=== PATIENT | male | born 1965 | race Caucasian/White ===

== ENCOUNTER 2016-05-17 07:58 | Emergency (ER) | payer SELFPAY ==
[~2016-05-17] VITALS: Ht 170.2 cm; Wt 98.0 kg
[~2016-05-17 07:58] MED LIST: ALBU.5I NEB; PRED20 PO; VENTAER INH
[2016-05-17 07:59] VITALS: BP 158/89; PULSE 77; RESP 16; TEMP 97.9; O2SAT 96
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
[2016-05-17] MEDS ORDERED: methylPREDNISolone SOD SUCC 125 MG/2 ML VIAL IM ONE (08:15)
[2016-05-17 08:20] VITALS: RESP 20; O2SAT 97; O2SAT 98
[2016-05-17] MEDS: RESP: ALBUTEROL 2.5 MG/IPRATROPIUM 0.5 MG NEB (SCH) INH ×2 (08:20→08:22)
[2016-05-17] MEDS ORDERED: ALBUAER3 INH (08:23)
[2016-05-17] MEDS ORDERED: PRED50 PO (08:23)
[2016-05-17] MEDS ORDERED: ALBU0.08 NEB (08:23)
[2016-05-17] MEDS ORDERED: BENZ100 PO (08:23)
[2016-05-17] MEDS ORDERED: IBUP800T23 PO (08:26)
--- NOTE | 2016-05-17 08:28 | PD ---
Data Data Last Documented VS Vital Signs Date Time Temp Pulse Resp B/P Pulse Ox O2 Delivery O2 Flow Rate FiO2 05/17/16 08:20 20 97 Room Air 05/17/16 07:59 97.9 77 158/89 Orders Electrocardiogram (05/17/16 08:08) Ecg Monitoring (05/17/16 08:08) Oximetry (05/17/16 08:08) Oxygen Administration (05/17/16 08:08) Chest, Single Ap (05/17/16 08:08) Albuterol-Ipratropium Neb (Duoneb Neb) (05/17/16 08:15) Methylprednisolone So Succ Inj (Solumedr (05/17/16 08:15) MDM Supervised Visit with MERLYN: Yes Narrative Course The history, exam, and medical decision-making in the associated mid-level provider note were completed with my assistance. I reviewed and agree with the findings presented. I attest that I had a [id number] encounter with the patient on the same day, and personally performed and documented my assessment and findings in the medical record. *My assessment and Findings: 51-year-old man with COPD presents emergent from shortness of breath and chest tightness. Symptoms started yesterday after he ran out of his medications. He states he always gets this tightness in his chest when he gets his COPD exacerbations. Recent negative stress test. Symptoms are nonexertional, worse with coughing. No recent URI or fevers chills. Symptoms are consistent with his previous exacerbations. EKG is unremarkable. We'll check x-ray, treatment for COPD exacerbation proper dilators steroids antibiotics. Diagnosis Primary Impression: COPD exacerbation Additional Impressions: Atypical chest pain Costochondritis Tobacco dependency Patient Instructions: General Instructions, COPD (Chronic Obstructive Pulmonary Disease) (ED) Additional Instruction: Please return to emergency department if your symptoms return or worsen. Follow up with your primary care provider. Try to obtain information about the [facility]. Take medications as prescribed. Scripts Ibuprofen 800 Mg Dyt169 Mg PO TID #30 TAB Prov:Moreno Yip MD 05/17/16 Albuterol Neb 2.5 Mg/3 Ml Neb2.5 Mg NEB TID NEB PRN (SHORTNESS OF BREATH) #60 NEBULE Ref 3 Prov:Moreno Yip MD 05/17/16 Albuterol 8.5 GM Inh (Proair Hfa 8.5 GM Inh)90 Mcg/Act Aer2 Puff INH Q6H PRN ( SHORTNESS OF BREATH) #1 INHALER Ref 2 108 mcg/actuation Prov:Moreno Yip MD 05/17/16 Benzonatate (Tessalon Perles)100 Mg [id number] Mg PO TID PRN (COUGH) #30 CAP Ref 0 Prov:Moreno Yip MD 05/17/16 Prednisone 50 Mg Tab50 Mg PO DAILY #5 TAB Prov:Moreno Yip MD 05/17/16 Disposition: 01 DISCHARGE HOME Condition: Stable Moreno Yip MD May 17, 2016 08:28
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
[2016-05-17 09:20] VITALS: BP 130/77; TEMP 97.8
--- NOTE | 2016-05-18 11:42 | EKG ---
Date Performed: 05/17/2016 Time Performed: 08:19:21 PTAGE: 51 years EKG: Sinus rhythm BORDERLINE RIGHT AXIS DEVIATION BORDERLINE ECG PREVIOUS TRACING : 02/12/2016 08.19 DOCTOR: Moreno Moreland Interpretating Date/Time 05/18/2016 11:40:29
== END 2016-05-17 09:20 | disposition home or self-care (01) ==
LOC: NEPC 07:58
DX: J44.1 Chronic obstructive pulmonary disease with (acute) exacerbation (principal); R07.89 Other chest pain; M94.0 Chondrocostal junction syndrome [Tietze]; J45.909 Unspecified asthma, uncomplicated; F17.210 Nicotine dependence, cigarettes, uncomplicated
CPT/HCPCS: 71010; 93005; 94640; 94664; 96372; 99285; J2930

== ENCOUNTER 2017-02-28 07:31 | Emergency (ER) | payer SELFPAY ==
[~2017-02-28 07:31] MED LIST changes: -ALBU.5I NEB; +ALBU0.08 NEB; -PRED20 PO; -VENTAER INH
[2017-02-28 07:32] VITALS: BP 150/71; PULSE 73; RESP 13; TEMP 99; O2SAT 98
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
[2017-02-28] MEDS ORDERED: methylPREDNISolone SOD SUCC 125 MG/2 ML VIAL IV PUSH ONE (08:00)
[2017-02-28] MEDS ORDERED: SODIUM CHLORIDE 0.9% FLUSH 10 ML FLUSH IVF PRN (08:00)
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
[2017-02-28 08:32] LABS: HEMATOCRIT 41.2 % (39.0-51.0); MEAN CELL VOLUME 92.9 FL (80.0-100.0); MEAN CORPUSCULAR HEMOGLOBIN 31.5 PG (27.0-34.0); MEAN CORPUSCULAR HGB CONC 33.9 % (32.0-36.0); PLATELET COUNT 100 TH/MM3 (150-450); RED BLOOD COUNT 4.44 MIL/MM3 (4.50-5.90); RED CELL DISTRIBUTION WIDTH 13.6 % (11.6-17.2); WHITE BLOOD COUNT 7.1 TH/MM3 (4.0-11.0)
[2017-02-28 08:35] LABS: HEMO FLAGS AUTO DIFF
[2017-02-28 08:38] LABS: INTERNATIONAL NORMALIZED RATIO 1.1 RATIO; PROTHROMBIN TIME - PATIENT 10.8 SEC (9.8-11.6)
[2017-02-28 08:54] LABS: ANION GAP 4 MEQ/L (5-15); BICARBONATE 29.2 MEQ/L (21.0-32.0); BLOOD UREA NITROGEN 11 MG/DL (7-18); CHLORIDE 104 MEQ/L (98-107); GLOMERULAR FILTRATION RATE 86 ML/MIN (>89); MAGNESIUM 1.9 MG/DL (1.5-2.5); SODIUM (NA) 137 MEQ/L (136-145)
[2017-02-28 08:55] VITALS: BP 141/74; PULSE 68; RESP 22; O2SAT 97
[2017-02-28 08:56] VITALS: O2SAT 97
[2017-02-28 08:59] VITALS: O2SAT 100
[2017-02-28] MEDS: RESP: ALBUTEROL 2.5 MG/IPRATROPIUM 0.5 MG NEB (SCH) INH ×2 (08:59→09:00)
[2017-02-28 09:09] LABS: BANDS 9 % (0-6); BASOPHILS 4 % (0-2); EOSINOPHILS 4 % (0-4); POLYS (SEG NEUTROPHILS) 62 % (16-70); STOMATOCYTES 1+ (NORMAL); WBC DIFF SAMPLE 100
[2017-02-28 09:10] LABS: PLATELET ESTIMATE SMEAR LOW (NORMAL); PLATELET MORPHOLOGY NORMAL (NORMAL); SCAN/DIFF FINAL DIFF MANUAL
[2017-02-28] MEDS ORDERED: IBUPROFEN 600 MG TAB PO ONE (09:30)
[2017-02-28] MEDS ORDERED: LEVOFLOXACIN 500 MG TAB PO ONE (09:30)
[2017-02-28] MEDS ORDERED: ACETAMINOPHEN/HYDROcodone 325 MG/5 MG TAB PO ONE (09:30)
[2017-02-28] MEDS ORDERED: PRED20 PO (10:02)
[2017-02-28] MEDS ORDERED: LEVA500T33 PO (10:02)
[2017-02-28] MEDS ORDERED: ENAL5TAB PO (10:02)
[2017-02-28] MEDS ORDERED: VENTAER INH (10:02)
[2017-02-28] MEDS: RESP: ALBUTEROL 2.5 MG/3 ML NEB (SCH) INH ×2 (10:13→10:31)
[2017-02-28] MEDS ORDERED: ALBU0.08 NEB (10:26)
--- NOTE | 2017-02-28 18:00 | EKG ---
Date Performed: 02/28/2017 Time Performed: 08:01:41 PTAGE: 51 years EKG: Sinus rhythm BORDERLINE RIGHT AXIS DEVIATION Since previous tracing, no significant change noted BORDERLINE ECG PREVIOUS TRACING : 05/17/2016 08.19 DOCTOR: Agustín Laurent Interpretating Date/Time 02/28/2017 17:58:47
== END 2017-02-28 10:43 | disposition home or self-care (01) ==
LOC: NEPC 07:31
DX: J44.1 Chronic obstructive pulmonary disease with (acute) exacerbation (principal); I10 Essential (primary) hypertension; M54.5 Low back pain; M79.605 Pain in left leg; G89.29 Other chronic pain; Z72.0 Tobacco use
CPT/HCPCS: 71010; 80048; 83735; 83880; 84484; 85007; 85027; 85610; 87040; 93005; 94640; 94664; 96374; 99285; J2930; J7613